=== PATIENT | male | born 1990 | race Caucasian/White ===

== ENCOUNTER 2019-08-08 20:50 | Emergency (ER) | payer MEDICAID ==
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
[2019-08-08] MEDS ORDERED: IOVERSOL 320 100 ML VIAL IVP ONE ×2 (21:35→23:25)
[2019-08-08] MEDS ORDERED: IOVERSOL 320 50 ML VIAL ONE ×2 (21:36→22:11)
[2019-08-08] MEDS ORDERED: HYDROcod/ACET 5/325 Prepack 4 PO STA (21:49)
[2019-08-08] MEDS ORDERED: IBUPROFEN 600 MG TABLET PO STA (21:49)
[2019-08-08 21:51] LABS: BASOPHILS % (AUTO) 0.2 %; EOSINOPHILS # (AUTO) 0.1 10^3/uL (0.0-0.7); HGB - HEMOGLOBIN 14.1 g/dL (14.0-18.0); LYMPHOCYTES # (AUTO) 0.8 10^3/uL (1.5-3.5); LYMPHOCYTES % (AUTO) 7.9 %; MEAN CORPUSCULAR HEMOGLOBIN 29.9 pg (27.0-31.0); MEAN CORPUSCULAR HGB CONC 32.5 g/dL (32.0-36.0); MEAN CORPUSCULAR VOLUME 91.9 fL (80.0-94.0); MEAN PLATELET VOLUME 9.2 fL (7.4-11.4); MONOCYTES # (AUTO) 0.5 10^3/uL (0.0-1.0); MONOCYTES % (AUTO) 4.7 %; NEUTROPHILS # (AUTO) 8.9 10^3/uL (1.5-6.6); NEUTROPHILS % (AUTO) 85.9 %; PLT - PLATELET COUNT 305 10^3/uL (130-450); RED BLOOD COUNT 4.72 10^6/uL (4.70-6.10); RED CELL DISTRIBUTION WIDTH 13.5 % (12.0-15.0); WHITE BLOOD COUNT 10.4 x10^3/uL (4.8-10.8)
[2019-08-08 21:52] LABS: BILIRUBIN,URINE NEGATIVE (NEGATIVE); GLUCOSE, URINE (UA) NEGATIVE (NEGATIVE); KETONES,URINE (UA) NEGATIVE (NEGATIVE); LEUKOCYTE ESTERASE, URINE NEGATIVE (NEGATIVE); NITRITE,URINE POSITIVE (NEGATIVE); OCCULT BLOOD,URINE LARGE (NEGATIVE); PH,URINE 6.5 PH (5.0-7.5); PROTEIN,URINE 100 mg/dL (NEGATIVE); UROBILINOGEN,URINE 0.2 (NORMAL) E.U./dL (NORMAL)
[2019-08-08 21:55] LABS: CLARITY,URINE CLOUDY (CLEAR)
[2019-08-08 22:06] LABS: ALBUMIN 4.1 g/dL (3.2-5.5); ALBUMIN/GLOBULIN RATIO 1.2 (1.0-2.2); BILIRUBIN,TOTAL 0.7 mg/dL (0.2-1.0); CALCIUM 9.2 mg/dL (8.5-10.3); CREATININE 0.8 mg/dL (0.6-1.2); TOTAL PROTEIN 7.4 g/dL (6.7-8.2)
[2019-08-08 22:07] LABS: BACTERIA,URINE Rare /HPF (None Seen); SQUAMOUS EPITHELIAL CELL,UR NONE SEEN (<= Few)
[2019-08-08] MEDS ORDERED: IOVERSOL 320 50 ML VIAL PO ONE (23:25)
--- NOTE | 2019-08-08 23:54 | CT Report ---
Reason: abd. pain Procedure Date: 08/08/2019 Accession Number: [id number] / [id number] Procedure: CT - Abdomen/Pelvis W CPT Code: Final Report FULL RESULT: EXAM: CT ABDOMEN AND PELVIS EXAM DATE: 08/08/2019 11:27 PM. CLINICAL HISTORY: Abd. pain. COMPARISONS: None. TECHNIQUE: Routine helical CT imaging was performed through the abdomen and pelvis. IV contrast: OPTI 320 100ML. Enteric contrast: No. Reconstructions: Coronal and sagittal. In accordance with CT protocol optimization, one or more of the following dose reduction techniques were utilized for this exam: automated exposure control, adjustment of mA and/or KV based on patient size, or use of iterative reconstructive technique. FINDINGS: Lung Bases: Unremarkable. Liver: Focal fatty infiltration adjacent to the falciform ligament. Gallbladder/Bile Ducts: Unremarkable. Spleen: Normal. Pancreas: Normal. Adrenal Glands: Normal. Kidneys: Normal. No masses or hydronephrosis. Peritoneal Cavity/Bowel: Extensive postoperative changes. Left lower quadrant ostomy. No evidence of bowel obstruction or perforation. No adenopathy. The appendix is well visualized and normal. Pelvic Organs: Trace free fluid in the pelvis. Byers catheter in the urinary bladder. Vasculature: No aneurysms or other significant abnormality. Bones: No significant abnormality. Other: None. IMPRESSION: Extensive postoperative changes, with an ostomy in the left lower quadrant. No evidence of bowel obstruction or perforation. RADIA
[2019-08-09 00:10] VITALS: BP 111/70
== END 2019-08-09 01:14 | disposition home or self-care (01) ==
LOC: ED 20:50
DX: R10.84 Generalized abdominal pain (principal); Z93.3 Colostomy status
CPT/HCPCS: 36415; 74177; 80053; 81001; 83690; 85025; 87077; 87086; 87181; 87493; 99284; Q9967; 81003

== ENCOUNTER 2023-03-17 08:00 | Outpatient (CLI) | payer MEDICAID, OTHER ==
[2023-03-17 18:24] LABS: BASOPHILS % (AUTO) 0.4 %; EOSINOPHILS # (AUTO) 0.1 10^3/uL (0.0-0.7); EOSINOPHILS % (AUTO) 1.4 %; HCT - HEMATOCRIT 43.4 % (42.0-52.0); HGB - HEMOGLOBIN 14.6 g/dL (14.0-18.0); LYMPHOCYTES # (AUTO) 1.8 10^3/uL (1.5-3.5); LYMPHOCYTES % (AUTO) 22.8 %; MEAN CORPUSCULAR HEMOGLOBIN 29.7 pg (27.0-31.0); MEAN CORPUSCULAR HGB CONC 33.6 g/dL (32.0-36.0); MEAN CORPUSCULAR VOLUME 88.4 fL (80.0-94.0); MEAN PLATELET VOLUME 9.8 fL (7.4-11.4); MONOCYTES # (AUTO) 0.6 10^3/uL (0.0-1.0); MONOCYTES % (AUTO) 7.8 %; NEUTROPHILS # (AUTO) 5.3 10^3/uL (1.5-6.6); NEUTROPHILS % (AUTO) 66.8 %; PLT - PLATELET COUNT 259 10^3/uL (130-450); RED BLOOD COUNT 4.91 10^6/uL (4.70-6.10); RED CELL DISTRIBUTION WIDTH 12.6 % (12.0-15.0); WHITE BLOOD COUNT 7.9 x10^3/uL (4.8-10.8)
== END 2023-03-17 23:59 | disposition home or self-care (01) ==
LOC: LAB.R 08:00
PROVIDERS: ATTEND Registered Nurse
DX: Z01.89 Encounter for other specified special examinations (principal)
CPT/HCPCS: 80053; 85025

== ENCOUNTER 2023-03-18 14:06 | Outpatient (CLI) | payer OTHER ==
[2023-03-18 14:28] LABS: ALBUMIN 4.2 g/dL (3.2-5.5); ALBUMIN/GLOBULIN RATIO 1.5 (1.0-2.2); BILIRUBIN,TOTAL 0.4 mg/dL (0.2-1.0); CALCIUM 9.6 mg/dL (8.5-10.3); CREATININE 0.8 mg/dL (0.6-1.3); POTASSIUM 3.9 mmol/L (3.5-4.5)
== END 2023-03-18 14:07 | disposition home or self-care (01) ==
LOC: LAB.R 14:06
PROVIDERS: ATTEND Registered Nurse
DX: Z01.89 Encounter for other specified special examinations (principal)
CPT/HCPCS: 80053

== ENCOUNTER 2023-06-26 08:00 | Outpatient (CLI) | payer OTHER ==
[2023-06-26 11:34] LABS: BASOPHILS % (AUTO) 0.5 %; EOSINOPHILS # (AUTO) 0.1 10^3/uL (0.0-0.7); EOSINOPHILS % (AUTO) 1.9 %; HCT - HEMATOCRIT 46.3 % (42.0-52.0); HGB - HEMOGLOBIN 15.5 g/dL (14.0-18.0); LYMPHOCYTES # (AUTO) 2.2 10^3/uL (1.5-3.5); MEAN CORPUSCULAR HEMOGLOBIN 28.9 pg (27.0-31.0); MEAN CORPUSCULAR HGB CONC 33.5 g/dL (32.0-36.0); MEAN CORPUSCULAR VOLUME 86.2 fL (80.0-94.0); MEAN PLATELET VOLUME 9.5 fL (7.4-11.4); MONOCYTES # (AUTO) 0.5 10^3/uL (0.0-1.0); MONOCYTES % (AUTO) 7.9 %; NEUTROPHILS # (AUTO) 3.4 10^3/uL (1.5-6.6); NEUTROPHILS % (AUTO) 54.4 %; PLT - PLATELET COUNT 257 10^3/uL (130-450); RED BLOOD COUNT 5.37 10^6/uL (4.70-6.10); RED CELL DISTRIBUTION WIDTH 12.7 % (12.0-15.0); WHITE BLOOD COUNT 6.2 x10^3/uL (4.8-10.8)
[2023-06-26 12:19] LABS: ALBUMIN 4.6 g/dL (3.2-5.5); ALBUMIN/GLOBULIN RATIO 2.2 (1.0-2.2); BILIRUBIN,TOTAL 0.3 mg/dL (0.2-1.0); CALCIUM 9.4 mg/dL (8.5-10.3); CREATININE 0.9 mg/dL (0.6-1.3); POTASSIUM 4.2 mmol/L (3.5-4.5); TOTAL PROTEIN 6.7 g/dL (6.4-8.9)
== END 2023-06-26 23:59 | disposition home or self-care (01) ==
LOC: LAB.R 08:00
PROVIDERS: ATTEND Registered Nurse
DX: R79.89 Other specified abnormal findings of blood chemistry (principal); R68.89 Other general symptoms and signs
CPT/HCPCS: 80053; 85025

== ENCOUNTER 2023-07-28 12:11 | Outpatient (CLI) | payer OTHER ==
--- NOTE | 2023-07-28 17:02 | CT Report ---
PROCEDURE: ABDOMEN/PELVIS W INDICATIONS: ABD AND BACK PAIN CONTRAST: 100ml omni 300 TECHNIQUE: After the administration of IV and oral contrast, 5 mm thick sections acquired from the diaphragms to the symphysis. 5 mm thick coronal and sagittal reformats were acquired. For radiation dose reducti on, the following was used: automated exposure control, adjustment of mA and/or kV according to chris ent size. COMPARISON: 08/08/2019 FINDINGS: Image quality: Good Lower chest bibasilar mild atelectasis. No hiatal hernia. Normal heart size. Solid organs: The liver appears unremarkable. Gallbladder is unremarkable. The CBD is mildly dilated at 8 mm. No pathologic pancreatic ductal dilation. No splenomegaly. No adrenal nodules. No hydronephr osis. No solid renal mass. Vessels and lymph nodes: The main portal vein is patent. No pathologic lymph nodes by size criteria i dentified. Bowel and peritoneum: No evidence of small bowel obstruction. Colorectal suture line. Right upper julieta drant suture lines. No pathologic ascites. Body wall: Multiple ventral hernias, containing fat and omentum, for example in the left lower quadra nt at site of prior ostomy. There are also ventral midline hernias. Most of these contain mildly mati ested omentum and vessels. Pelvis: Bladder is unremarkable. Prostate is not well evaluated on this study. Bones: Straightening of normal lumbar lordosis. No high-grade degenerative changes or traumatic sublu xation or acute appearing vertebral body height loss. No suspicious lesions. IMPRESSION: Multiple small fat and omental vessel-containing ventral hernias, most notably along the midline and left lower quadrant. No bowel obstruction. Mildly dilated CBD is nonspecific, correlate LFTs and consider MRCP if necessary. No high-grade degenerative changes of the lumbar spine. There is straightening of normal lumbar lordo sis. Disc space height loss is seen at L5-S1. If there is high concern for further derangement, consi shiv MRI evaluation. Reviewed by: Gaurav Rea MD on 07/28/2023 5:00 PM PST Approved by: Gaurav Rea MD on 07/28/2023 5:00 PM PST Station ID: [id number]
[2023-07-28] MEDS ORDERED: iohexoL-300 100 ML VIAL IVP ONE (18:09)
[2023-07-28] MEDS ORDERED: DIATRIZOATE MEGLU/DIATRIZO SOD 30 ML BOTTLE PO ONE (18:09)
--- NOTE | 2023-07-28 19:21 | CT Report ---
PROCEDURE: CT thoracic spine with contrast INDICATIONS: BACK PAIN CONTRAST: 100ml omni 300 TECHNIQUE: CT of the thorax was reformatted from concurrent CT abdomen pelvis. No additional radiati on exposure. COMPARISON: None. FINDINGS: Image quality: Excellent. Bones: Vertebral body height, alignment and interspacing is well maintained. The osseous central can al is widely patent. No lytic or blastic lesions. Soft tissues: Unremarkable IMPRESSION: Normal CT of the thoracic spine with contrast Reviewed by: Nico Franco MD on 07/28/2023 6:19 PM [place] Approved by: Nico Franco MD on 07/28/2023 6:19 PM [place] Station ID: [id number]
== END 2023-07-28 12:12 | disposition home or self-care (01) ==
LOC: DI 12:11
PROVIDERS: ATTEND Registered Nurse
DX: R10.9 Unspecified abdominal pain (principal); K43.9 Ventral hernia without obstruction or gangrene; M51.37 Other intervertebral disc degeneration, lumbosacral region
CPT/HCPCS: 72129; 74177; Q9963; Q9967